=== PATIENT | female | born 1965 | race Caucasian/White ===

== ENCOUNTER 2017-02-10 08:59 | Emergency (ER) | payer OTHER ==
[~2017-02-10] VITALS: Ht 152.4 cm; Wt 55.0 kg
[2017-02-10] MEDS ORDERED: IBUP-2070 PO (09:04)
[2017-02-10] MEDS ORDERED: HYDROCODONE/ACETAMINOPHEN 5-325 MG TABLET PO ONE (09:30)
[2017-02-10] MEDS ORDERED: ONDANSETRON HCL 4 MG TABLET PO ONE (09:30)
[2017-02-10 10:35] VITALS: BP 125/98
== END 2017-02-10 11:18 | disposition home or self-care (01) ==
LOC: EMS 09:01
DX: S06.0X0A Concussion without loss of consciousness, initial encounter (principal); F17.210 Nicotine dependence, cigarettes, uncomplicated; W01.0XXA Fall on same level from slipping, tripping and stumbling without subsequent striking against object, initial encounter; Y93.E1 Activity, personal bathing and showering; Y92.89 Other specified places as the place of occurrence of the external cause; Y99.8 Other external cause status
CPT/HCPCS: 70450; 99284; Q0162